=== PATIENT | female | born 1990 | race Caucasian/White ===

== ENCOUNTER 2017-02-25 07:24 | Outpatient (CLI) | payer BC ==
--- NOTE | 2017-02-25 09:53 | ULT ---
ULTRASOUND ABDOMEN: Date: 02/25/17 HISTORY: Right upper quadrant pain. FINDINGS: The liver, spleen, gallbladder, pancreas, kidneys, and visualized portions of the aorta and IVC appe ar normal. The common duct measures 2.0 mm in diameter. No free fluid is seen. IMPRESSION: Normal exam. POS: [facility]
== END 2017-02-25 07:25 | disposition home or self-care (01) ==
LOC: ULT 07:24
PROVIDERS: ATTEND Family Medicine
DX: R10.84 Generalized abdominal pain (principal)
CPT/HCPCS: 76700

== ENCOUNTER 2019-10-14 09:17 | Outpatient (CLI) | payer BC ==
--- NOTE | 2019-10-14 10:25 | MMO ---
Bilateral MAMMO Bilat Diag [facility]. CLINICAL HISTORY: Patient is 29 years old and is seen for diagnostic exam and palpable abnormality in the left breast. The patient has no family history of breast cancer. The patient has no personal history of cancer. VIEWS: The views performed were: bilateral craniocaudal with tomosynthesis; bilateral mediolateral oblique with tomosynthesis; and bilateral mediolateral with tomosynthesis. FILMS COMPARED: The present examination has been compared to a prior imaging study performed at [facility] on 10/14/2019. This study has been interpreted with the assistance of computer-aided detection. MAMMOGRAM FINDINGS: The breasts are heterogeneously dense, which could obscure a lesion on mammography. There are no suspicious masses, suspicious calcifications, or areas of architectural distortion. There are no mammographic or sonographic abnormalities in the area of palpable concern. The patient is referred back to her clinician. Negative imaging findings should not preclude biopsy if clinical findings are suspicious. IMPRESSION: THERE IS NO MAMMOGRAPHIC EVIDENCE OF MALIGNANCY. THE RESULTS OF THIS EXAM WERE SENT TO THE PATIENT. ACR BI-RADS Category 1 - Negative MAMMOGRAPHY NOTE: 1. A negative mammogram report should not delay a biopsy if a dominant of clinically suspicious mass is present. 2. Approximately 10% to 15% of breast cancers are not detected by mammography. 3. Adenosis and dense breasts may obscure an underlying neoplasm. Reported by: SANJUANA RAMIREZ MD Electonically Signed: [id number]
--- NOTE | 2019-10-14 10:25 | MMO ---
Left US Breast Limited Lt. CLINICAL HISTORY: Patient is 29 years old and is seen for . VIEWS: The views performed were: . FILMS COMPARED: The present examination has been compared to a prior imaging study performed at [facility] on 10/14/2019. This study has been interpreted with the assistance of computer-aided detection. LEFT BREAST ULTRASOUND FINDINGS: On ultrasound, no suspicious findings are identified. There are no mammographic or sonographic abnormalities in the area of palpable concern. The patient is referred back to her clinician. Negative imaging findings should not preclude biopsy if clinical findings are suspicious. IMPRESSION: THERE ARE NO SONOGRAPHIC ABNORMALITIES IN THE AREA OF PALPABLE CONCERN. THE PATIENT IS REFERRED BACK TO HER CLINICIAN. NEGATIVE IMAGING FINDINGS SHOULD NOT PRECLUDE BIOPSY IF CLINICAL FINDINGS ARE SUSPICIOUS. THE RESULTS OF THIS EXAM WERE SENT TO THE PATIENT. ACR BI-RADS Category 1 - Negative MAMMOGRAPHY NOTE: 1. A negative mammogram report should not delay a biopsy if a dominant of clinically suspicious mass is present. 2. Approximately 10% to 15% of breast cancers are not detected by mammography. 3. Adenosis and dense breasts may obscure an underlying neoplasm. Reported by: SANJUANA RAMIREZ MD Electonically Signed: [id number]
== END 2019-10-14 09:18 | disposition home or self-care (01) ==
LOC: BICMAMMO 09:17
PROVIDERS: ATTEND Obstetrics & Gynecology
DX: N63.20 Unspecified lump in the left breast, unspecified quadrant (principal)
CPT/HCPCS: 77066; G0279

== ENCOUNTER 2021-05-18 07:38 | Outpatient (CLI) | payer BC | END 2021-05-18 07:39 | disposition home or self-care (01) | LOC: BICULT 07:38 | PROVIDERS: ATTEND Internal Medicine Gastroenterology | DX: R94.5 Abnormal results of liver function studies (principal) | CPT/HCPCS: 76705 ==